=== PATIENT | female | born 1975 | race Two or more races ===

== ENCOUNTER 2023-02-16 10:49 | Emergency (ER) | payer SELFPAY ==
[~2023-02-16] VITALS: Ht 152.4 cm; Wt 56.8 kg
[2023-02-16 12:07] VITALS: BP 135/84; PULSE 110; RESP 18; TEMP 98; O2SAT 100
[2023-02-16] MEDS ORDERED: NAPR-746 PO (12:25)
== END 2023-02-16 12:32 | disposition home or self-care (01) ==
LOC: ER 10:49
DX: M65.241 Calcific tendinitis, right hand (principal); F17.210 Nicotine dependence, cigarettes, uncomplicated
CPT/HCPCS: 73080